=== PATIENT | female | born 2000 | race Hispanic/Latino ===

== ENCOUNTER 2022-09-22 09:53 | Emergency (ER) | payer OTHER ==
[~2022-09-22] VITALS: Ht 162.6 cm; Wt 79.0 kg
[2022-09-22] MEDS ORDERED: PROMETHAZINE HC25 M1 PO (10:52)
== END 2022-09-22 11:11 | disposition home or self-care (01) ==
LOC: ED 09:53
DX: O99.891 Other specified diseases and conditions complicating pregnancy (principal); M54.50 Low back pain, unspecified
CPT/HCPCS: 81003; 84703; 99283